=== PATIENT | male | born 1960 | race Caucasian/White ===

== ENCOUNTER 2016-11-10 03:21 | Inpatient (IN) | payer OTHER ==
[~2016-11-10] VITALS: Ht 170.2 cm; Wt 57.1 kg
[~2016-11-10 03:21] MED LIST: ADVAIR HFA120 INHAL1 IH; AGGRENOX1 CAPSULE PO; AMLODIPINE BESY10 MG PO; AMLODIPINE BESYL5 MG PO; ASPIR-LOW81 MG PO; ATORVASTATIN CA40 MG PO; CEFDINIR300 MG PO; DIOVAN HCT 31 TABLE1 PO; DOXYCYCLINE HY100 MG PO; DULERA 200 MCG/13 GM IH; DUONEB 2.5-0.5 M3 ML AEROSOL; FOLIC ACID1 MG PO; LIPITOR40 MG PO; LISINOPRIL20 MG PO; LOPRESSOR100 M1 PO; NICOTINE PATCH1 EAC2 TD; NICOTINE PATCH1 EACH TD; NORVASC10 MG PO; OMNICEF300 MG PO; OXYCODONE HCL30 MG PO; OXYMORPHONE HCL20 MG PO; PLAVIX75 MG PO; PREDNISONE10 MG PO; ST. JOSEPH ASPI81 MG PO; THERAGRAN1 TABLET PO; VALSARTAN-HCTZ1 EAC3 PO; VENTOLIN HFA18 GM IH; VITAMIN B-1100 MG PO
[2016-11-10 03:46] LABS: HEMATOCRIT 37.7 % (38.0-50.0); MCH 29.7 PG (29.0-34.0); MCHC 32.6 G/DL (30.0-36.0); MCV 91.1 FL (86-99); MEAN PLAT.VOLUME 8.6 uM^3 (9.0-12.4); PLATELET COUNT 447 K/uL (156-360); RBC DIS.WIDTH-CV 18.7 % (11.8-14.6); RBC DIS.WIDTH-SD 60.8 % (39-53); RED BLOOD COUNT 4.14 M/uL (4.00-5.50); WHITE BLOOD COUNT 20.7 K/uL (4.1-10.2)
[2016-11-10 03:47] LABS: EOSINOPHIL (%) 0.1 % (0-5); IMMATURE GRANULOCYTE (%) 0.6 % (0.0-0.7); IMMATURE GRANULOCYTE COUNT 1.3 K/uL; MONOCYTE (%) 6.6 % (3-12); MONOCYTE COUNT 1.4 K/uL (0-0.8); NEUTROPHIL (%) 83.1 % (45-76); NEUTROPHIL COUNT 17.2 K/uL (1.8-6.4)
[2016-11-10 03:55] LABS: CHLORIDE 96 mEq/L (99-109); POTASSIUM 2.8 mEq/L (3.7-5.4); SODIUM 144 mEq/L (136-147)
[2016-11-10 03:57] LABS: GLUCOSE 136 mg/dL (70-99)
[2016-11-10 03:58] LABS: ANION GAP 14 MEQ/L (2-14); PTT 45.2 (25-32)
[2016-11-10 03:59] LABS: INTER. NORMALIZED RATIO 2.3; PROTHROMBIN TIME 23.9 (9.2-11.2); TOTAL BILIRUBIN 0.2 mg/dL (0.0-1.0)
[2016-11-10 04:00] LABS: ALKALINE PHOSPHATASE 90 IU/L (3-129); SERUM ETHYL ALCOHOL 289 mg/dL
[2016-11-10 04:01] LABS: GFR ESTIMATE (CALCULATED) > 59 mL/min/
[2016-11-10 04:02] LABS: UREA NITROGEN (BUN) 19 mg/dL (9-23)
[2016-11-10 04:04] LABS: CREATINE KINASE 32 IU/L (1-294); LIPASE 151 U/L (1.0-51.0)
[2016-11-10 04:29] LABS: CARBON DIOXIDE (BICARBONATE) 37.2 MEQ/L (20-31)
[2016-11-10 09:04] LABS: ADD MIUA? NO; BILIRUBIN NEGATIVE; BLOOD NEGATIVE; COLOR YELLOW ((YELLOW)); GLUCOSE (STRIP) NEGATIVE; KETONES NEGATIVE; LEUKOCYTES NEGATIVE; NITRITE NEGATIVE; PROTEIN (STRIP) TRACE; SPECIFIC GRAVITY 1.017 (1.000-1.030); UCUL ADDED? NO; UROBILINOGEN 0.2 MG/DL (0.2-1.0)
[2016-11-10 09:48] LABS: HEMATOCRIT 31.7 % (38.0-50.0); MCH 30.4 PG (29.0-34.0); MCHC 34.1 G/DL (30.0-36.0); MCV 89.3 FL (86-99); MEAN PLAT.VOLUME 8.6 uM^3 (9.0-12.4); PLATELET COUNT 332 K/uL (156-360); RBC DIS.WIDTH-CV 18.4 % (11.8-14.6); RBC DIS.WIDTH-SD 58.2 % (39-53); RED BLOOD COUNT 3.55 M/uL (4.00-5.50); WHITE BLOOD COUNT 24.1 K/uL (4.1-10.2)
[2016-11-10 10:04] LABS: CHLORIDE 103 mEq/L (99-109); POTASSIUM 3.3 mEq/L (3.7-5.4); SODIUM 143 mEq/L (136-147)
[2016-11-10 10:06] LABS: GLUCOSE 133 mg/dL (70-99)
[2016-11-10 10:07] LABS: ANION GAP 19 MEQ/L (2-14)
[2016-11-10 10:09] LABS: ALKALINE PHOSPHATASE 75 IU/L (3-129); TOTAL BILIRUBIN 0.4 mg/dL (0.0-1.0)
[2016-11-10 10:10] LABS: GFR ESTIMATE (CALCULATED) > 59 mL/min/
[2016-11-10 10:11] LABS: UREA NITROGEN (BUN) 16 mg/dL (9-23)
[2016-11-10 11:11] LABS: EOSINOPHIL (%) 0.3 % (0-5); EOSINOPHIL COUNT 0.1 K/uL (0-0.3); HEMATOLOGY COMMENT 1 SMEAR COMPATIBLE; IMMATURE GRANULOCYTE (%) 0.5 % (0.0-0.7); IMMATURE GRANULOCYTE COUNT 1.1 K/uL; LYMPHOCYTE COUNT 0.4 K/uL (1.0-2.8); MONOCYTE (%) 1.4 % (3-12); MONOCYTE COUNT 0.3 K/uL (0-0.8); NEUTROPHIL (%) 96.2 % (45-76); NEUTROPHIL COUNT 23.1 K/uL (1.8-6.4); USER ID STC
[2016-11-10 12:08] LABS: CHLORIDE 103 mEq/L (99-109); POTASSIUM 3.4 mEq/L (3.7-5.4); SODIUM 143 mEq/L (136-147)
[2016-11-10 12:09] LABS: GLUCOSE 133 mg/dL (70-99)
[2016-11-10 12:11] LABS: ANION GAP 17 MEQ/L (2-14)
[2016-11-10 12:13] LABS: GFR ESTIMATE (CALCULATED) > 59 mL/min/
[2016-11-10 12:14] LABS: UREA NITROGEN (BUN) 16 mg/dL (9-23)
[2016-11-10 15:03] VITALS: BP 132/82
[2016-11-10 16:00] VITALS: BP 164/89
[2016-11-10 23:12] VITALS: BP 124/77
[2016-11-11 06:01] LABS: ALKALINE PHOSPHATASE 62 IU/L (3-129); ANION GAP 10 MEQ/L (2-14); CHLORIDE 99 MEQ/L (99-109); GFR ESTIMATE (CALCULATED) > 59 mL/min/; GLUCOSE 136 mg/dL (70-99); LIPASE 66 U/L (1.0-51.0); SAMPLE HEMOLYSIS CHECK 0; SAMPLE ICTERIC CHECK 0; SAMPLE LIPEMIA CHECK 0; SODIUM 138 MEQ/L (136-147); TOTAL BILIRUBIN 0.4 MG/DL (0.0-1.0); UREA NITROGEN (BUN) 18 mg/dL (9-23)
[2016-11-11 06:22] LABS: HEMATOCRIT 28.8 % (38.0-50.0); MCHC 32.6 G/DL (30.0-36.0); MCV 88.9 FL (86-99); MEAN PLAT.VOLUME 8.8 uM^3 (9.0-12.4); PLATELET COUNT 334 K/uL (156-360); RBC DIS.WIDTH-CV 18.5 % (11.8-14.6); RBC DIS.WIDTH-SD 60.9 % (39-53); RED BLOOD COUNT 3.24 M/uL (4.00-5.50)
[2016-11-11 06:23] LABS: WHITE BLOOD COUNT 13.3 K/uL (4.1-10.2)
[2016-11-11 06:25] LABS: INTER. NORMALIZED RATIO 1.9; PROTHROMBIN TIME 20.1 (9.2-11.2)
[2016-11-11 07:24] LABS: MAGNESIUM 1.8 mg/dl (1.3-2.7)
[2016-11-11 08:02] VITALS: BP 147/102
[2016-11-11] MEDS ORDERED: AMLODIPINE BESY10 MG PO (15:34)
[2016-11-11] MEDS ORDERED: ASPIRIN81 M2 PO (15:35)
[2016-11-11] MEDS ORDERED: CARVEDILOL6.25 MG PO (15:36)
[2016-11-11] MEDS ORDERED: ATORVASTATIN CA40 MG PO (15:36)
[2016-11-11] MEDS ORDERED: PLAVIX75 MG PO (15:37)
[2016-11-11] MEDS ORDERED: FOLIC ACID1 MG PO (15:38)
[2016-11-11] MEDS ORDERED: DIOVAN HCT 11 TABLE1 PO (15:41)
[2016-11-11] MEDS ORDERED: VIAGRA100 MG PO (15:42)
[2016-11-11 16:14] VITALS: BP 143/91
[2016-11-11 23:08] VITALS: BP 127/96
[2016-11-12 04:55] LABS: BASE EXCESS -3.8 mEq/L (-3 to +3); CARBOXY HGB 1.7 % (0-5); METHEMOGLOBIN 1.5 % (0-1.5); pH 7.35 (7.35-7.45)
[2016-11-12 04:56] LABS: BICARBONATE 21.5 mEq/L (22-26); COMMENTS - BLOOD GASES C+; DEVICE NRB MASK; FI02 100 %; O2 FLOW 15 L/MIN; PCO2 39 mm Hg (35-45); PO2 122 mm Hg (80-100); SITE RR; TOTAL RESP RATE 28 resp/min
[2016-11-12 06:49] LABS: INTER. NORMALIZED RATIO 1.3; PROTHROMBIN TIME 13.4 (9.2-11.2)
[2016-11-12 06:50] LABS: HEMATOCRIT 31.4 % (38.0-50.0); MCH 30.2 PG (29.0-34.0); MCHC 33.4 G/DL (30.0-36.0); MCV 90.2 FL (86-99); PLATELET COUNT 361 K/uL (156-360); RBC DIS.WIDTH-CV 18.3 % (11.8-14.6); RBC DIS.WIDTH-SD 60.4 % (39-53); RED BLOOD COUNT 3.48 M/uL (4.00-5.50)
[2016-11-12 06:56] LABS: WHITE BLOOD COUNT 21.7 K/uL (4.1-10.2)
[2016-11-12 07:39] LABS: TROP-I INTERPRETATION INDETERMINATE; TROPONIN-I 0.47 ng/mL (0.0-0.30)
[2016-11-12 08:59] LABS: ALKALINE PHOSPHATASE 60 IU/L (3-129); ANION GAP 11 MEQ/L (2-14); CHLORIDE 98 MEQ/L (99-109); GFR ESTIMATE (CALCULATED) > 59 mL/min/; GLUCOSE 127 mg/dL (70-99); POTASSIUM 3.6 MEQ/L (3.7-5.4); SAMPLE HEMOLYSIS CHECK 0; SAMPLE ICTERIC CHECK 0; SAMPLE LIPEMIA CHECK 0; SODIUM 135 MEQ/L (136-147); UREA NITROGEN (BUN) 12 mg/dL (9-23)
[2016-11-12 09:01] LABS: TOTAL BILIRUBIN 0.5 MG/DL (0.0-1.0)
[2016-11-12 09:15] VITALS: BP 118/84
[2016-11-12 11:30] VITALS: BP 119/93
[2016-11-12 16:12] LABS: TROP-I INTERPRETATION INDETERMINATE; TROPONIN-I 0.45 ng/mL (0.0-0.30)
[2016-11-12 20:06] VITALS: BP 123/92
[2016-11-12 22:52] VITALS: BP 142/70
[2016-11-12 23:05] LABS: EOSINOPHIL (%) 0 % (0-5); HEMATOCRIT 30.7 % (38.0-50.0); IMMATURE GRANULOCYTE (%) 0.3 % (0.0-0.7); LYMPHOCYTE COUNT 0.4 K/uL (1.0-2.8); MCH 28.5 PG (29.0-34.0); MCHC 31.6 G/DL (30.0-36.0); MCV 90.3 FL (86-99); MONOCYTE (%) 4.5 % (3-12); MONOCYTE COUNT 0.5 K/uL (0-0.8); NEUTROPHIL (%) 91.5 % (45-76); NEUTROPHIL COUNT 9.2 K/uL (1.8-6.4); PLATELET COUNT 357 K/uL (156-360); RBC DIS.WIDTH-CV 18.4 % (11.8-14.6); RBC DIS.WIDTH-SD 61.2 % (39-53)
[2016-11-12 23:06] LABS: WHITE BLOOD COUNT 10.1 K/uL (4.1-10.2)
[2016-11-12 23:10] LABS: CHLORIDE 102 mEq/L (99-109); POTASSIUM 3.9 mEq/L (3.7-5.4); SODIUM 136 mEq/L (136-147)
[2016-11-12 23:12] LABS: GLUCOSE 128 mg/dL (70-99)
[2016-11-12 23:13] LABS: ANION GAP 11 MEQ/L (2-14)
[2016-11-12 23:16] LABS: GFR ESTIMATE (CALCULATED) > 59 mL/min/; UREA NITROGEN (BUN) 17 mg/dL (9-23)
[2016-11-13 01:19] LABS: TROP-I INTERPRETATION NEGATIVE; TROPONIN-I 0.26 ng/mL (0.0-0.30)
[2016-11-13 04:23] VITALS: BP 125/85
[2016-11-13 08:22] LABS: MCH 29.8 PG (29.0-34.0); MCHC 32.7 G/DL (30.0-36.0); MCV 91.2 FL (86-99); MEAN PLAT.VOLUME 9.2 uM^3 (9.0-12.4); PLATELET COUNT 322 K/uL (156-360); RBC DIS.WIDTH-CV 18.4 % (11.8-14.6); RBC DIS.WIDTH-SD 61.2 % (39-53); RED BLOOD COUNT 3.29 M/uL (4.00-5.50); WHITE BLOOD COUNT 8.8 K/uL (4.1-10.2)
[2016-11-13 08:26] LABS: INTER. NORMALIZED RATIO 1.5; PROTHROMBIN TIME 15.3 (9.2-11.2)
[2016-11-13 08:49] LABS: CHLORIDE 105 mEq/L (99-109); POTASSIUM 4.3 mEq/L (3.7-5.4); SODIUM 140 mEq/L (136-147)
[2016-11-13 08:51] LABS: GLUCOSE 120 mg/dL (70-99)
[2016-11-13 08:52] LABS: ANION GAP 10 MEQ/L (2-14)
[2016-11-13 08:53] LABS: TOTAL BILIRUBIN 0.3 mg/dL (0.0-1.0)
[2016-11-13 08:54] LABS: ALKALINE PHOSPHATASE 55 IU/L (3-129)
[2016-11-13 08:55] LABS: GFR ESTIMATE (CALCULATED) > 59 mL/min/
[2016-11-13 08:56] LABS: UREA NITROGEN (BUN) 15 mg/dL (9-23)
[2016-11-13 08:59] LABS: TROP-I INTERPRETATION NEGATIVE; TROPONIN-I 0.14 ng/mL (0.0-0.30)
[2016-11-13 17:19] VITALS: BP 136/90
[2016-11-13 18:52] VITALS: BP 159/106
[2016-11-13 23:43] VITALS: BP 138/68
[2016-11-14 04:09] VITALS: BP 138/58
[2016-11-14 05:27] LABS: HEMATOCRIT 30.7 % (38.0-50.0); MCH 29.9 PG (29.0-34.0); MCHC 31.9 G/DL (30.0-36.0); MCV 93.6 FL (86-99); MEAN PLAT.VOLUME 9.2 uM^3 (9.0-12.4); PLATELET COUNT 315 K/uL (156-360); RBC DIS.WIDTH-CV 18.1 % (11.8-14.6); RED BLOOD COUNT 3.28 M/uL (4.00-5.50); WHITE BLOOD COUNT 9.5 K/uL (4.1-10.2)
[2016-11-14 05:59] LABS: PROTHROMBIN TIME 21.3 (9.2-11.2)
[2016-11-14 06:26] LABS: ALKALINE PHOSPHATASE 43 IU/L (3-129); ANION GAP 7 MEQ/L (2-14); CHLORIDE 104 MEQ/L (99-109); GFR ESTIMATE (CALCULATED) > 59 mL/min/; GLUCOSE 110 mg/dL (70-99); POTASSIUM 3.6 MEQ/L (3.7-5.4); SAMPLE HEMOLYSIS CHECK 0; SAMPLE ICTERIC CHECK 0; SAMPLE LIPEMIA CHECK 0; SODIUM 142 MEQ/L (136-147); TOTAL BILIRUBIN 0.4 MG/DL (0.0-1.0); UREA NITROGEN (BUN) 17 mg/dL (9-23)
[2016-11-14 06:30] LABS: VANCOMYCIN, TROUGH 27.6 MCG/ML (10-20)
[2016-11-14 07:00] VITALS: BP 148/82
[2016-11-14 11:40] VITALS: BP 142/88
[2016-11-14 16:45] VITALS: BP 138/82
[2016-11-14 20:00] VITALS: BP 138/70
[2016-11-14 22:44] VITALS: BP 140/70
[2016-11-15 03:01] VITALS: BP 128/68
[2016-11-15 06:54] LABS: HEMATOCRIT 28.8 % (38.0-50.0); MCH 29.7 PG (29.0-34.0); MCHC 31.6 G/DL (30.0-36.0); MCV 94.1 FL (86-99); MEAN PLAT.VOLUME 9.1 uM^3 (9.0-12.4); PLATELET COUNT 312 K/uL (156-360); RBC DIS.WIDTH-CV 18.4 % (11.8-14.6); RED BLOOD COUNT 3.06 M/uL (4.00-5.50); WHITE BLOOD COUNT 9.9 K/uL (4.1-10.2)
[2016-11-15 07:10] LABS: INTER. NORMALIZED RATIO 2.3; PROTHROMBIN TIME 24.4 (9.2-11.2)
[2016-11-15 07:24] LABS: ALKALINE PHOSPHATASE 45 IU/L (3-129); ANION GAP 10 MEQ/L (2-14); CHLORIDE 112 MEQ/L (99-109); GFR ESTIMATE (CALCULATED) > 59 mL/min/; GLUCOSE 93 mg/dL (70-99); POTASSIUM 3.2 MEQ/L (3.7-5.4); SAMPLE HEMOLYSIS CHECK 0; SAMPLE ICTERIC CHECK 0; SAMPLE LIPEMIA CHECK 0; UREA NITROGEN (BUN) 17 mg/dL (9-23)
[2016-11-15 07:25] LABS: SODIUM 150 MEQ/L (136-147); TOTAL BILIRUBIN 0.5 MG/DL (0.0-1.0)
[2016-11-15 07:40] VITALS: BP 148/68
[2016-11-15 12:15] VITALS: BP 132/72
[2016-11-15 17:50] VITALS: BP 148/78
[2016-11-15 19:50] VITALS: BP 158/82
[2016-11-15 23:00] VITALS: BP 162/91
[2016-11-16 04:16] VITALS: BP 159/97
[2016-11-16 06:47] LABS: HEMATOCRIT 29.1 % (38.0-50.0); MCHC 31.3 G/DL (30.0-36.0); MCV 92.7 FL (86-99); MEAN PLAT.VOLUME 8.8 uM^3 (9.0-12.4); PLATELET COUNT 308 K/uL (156-360); RBC DIS.WIDTH-CV 18.6 % (11.8-14.6); RBC DIS.WIDTH-SD 63.1 % (39-53); RED BLOOD COUNT 3.14 M/uL (4.00-5.50)
[2016-11-16 07:18] LABS: ALKALINE PHOSPHATASE 55 IU/L (3-129); ANION GAP 11 MEQ/L (2-14); CHLORIDE 112 MEQ/L (99-109); GFR ESTIMATE (CALCULATED) > 59 mL/min/; GLUCOSE 113 mg/dL (70-99); SAMPLE HEMOLYSIS CHECK 0; SAMPLE ICTERIC CHECK 0; SAMPLE LIPEMIA CHECK 0; SODIUM 152 MEQ/L (136-147); TOTAL BILIRUBIN 0.5 MG/DL (0.0-1.0); UREA NITROGEN (BUN) 12 mg/dL (9-23)
[2016-11-16 07:52] VITALS: BP 170/93
[2016-11-16 11:11] VITALS: BP 147/98
[2016-11-16 16:40] VITALS: BP 140/86
[2016-11-16 20:15] VITALS: BP 139/98
[2016-11-16 22:04] VITALS: BP 145/99
[2016-11-17 03:40] VITALS: BP 139/98
[2016-11-17 06:42] LABS: HEMATOCRIT 28.2 % (38.0-50.0); MCH 28.6 PG (29.0-34.0); MCHC 30.9 G/DL (30.0-36.0); MCV 92.8 FL (86-99); MEAN PLAT.VOLUME 9.5 uM^3 (9.0-12.4); PLATELET COUNT 319 K/uL (156-360); RBC DIS.WIDTH-SD 64.4 % (39-53); RED BLOOD COUNT 3.04 M/uL (4.00-5.50); WHITE BLOOD COUNT 8.8 K/uL (4.1-10.2)
[2016-11-17 06:53] LABS: INTER. NORMALIZED RATIO 2.9; PROTHROMBIN TIME 30.3 (9.2-11.2)
[2016-11-17 07:10] LABS: ALKALINE PHOSPHATASE 80 IU/L (3-129); ANION GAP 9 MEQ/L (2-14); CHLORIDE 113 MEQ/L (99-109); GFR ESTIMATE (CALCULATED) > 59 mL/min/; GLUCOSE 112 mg/dL (70-99); SAMPLE HEMOLYSIS CHECK 0; SAMPLE ICTERIC CHECK 0; SAMPLE LIPEMIA CHECK 0; SODIUM 151 MEQ/L (136-147); TOTAL BILIRUBIN 0.5 MG/DL (0.0-1.0); UREA NITROGEN (BUN) 9 mg/dL (9-23)
[2016-11-17 07:19] LABS: POTASSIUM 3.8 MEQ/L (3.7-5.4)
[2016-11-17 08:51] VITALS: BP 179/85
[2016-11-17 09:39] VITALS: BP 179/85
[2016-11-17 12:13] VITALS: BP 142/98
[2016-11-17 16:48] VITALS: BP 138/110
[2016-11-17 22:55] VITALS: BP 156/86
[2016-11-18] VITALS (7 sets, daily range): BP systolic 129–175; BP diastolic 89–109
[2016-11-18 06:55] LABS: HEMATOCRIT 26.5 % (38.0-50.0); MCHC 31.3 G/DL (30.0-36.0); MCV 92.7 FL (86-99); MEAN PLAT.VOLUME 9.1 uM^3 (9.0-12.4); PLATELET COUNT 309 K/uL (156-360); RBC DIS.WIDTH-CV 19.3 % (11.8-14.6); RBC DIS.WIDTH-SD 65.1 % (39-53); RED BLOOD COUNT 2.86 M/uL (4.00-5.50)
[2016-11-18 07:05] LABS: INTER. NORMALIZED RATIO 3.4; PROTHROMBIN TIME 35.7 (9.2-11.2)
[2016-11-18 07:35] LABS: ALKALINE PHOSPHATASE 75 IU/L (3-129); ANION GAP 7 MEQ/L (2-14); CHLORIDE 113 MEQ/L (99-109); GFR ESTIMATE (CALCULATED) > 59 mL/min/; GLUCOSE 112 mg/dL (70-99); POTASSIUM 4.1 MEQ/L (3.7-5.4); SAMPLE HEMOLYSIS CHECK 0; SAMPLE ICTERIC CHECK 0; SAMPLE LIPEMIA CHECK 0; SODIUM 149 MEQ/L (136-147); TOTAL BILIRUBIN 0.4 MG/DL (0.0-1.0); UREA NITROGEN (BUN) 8 mg/dL (9-23)
[2016-11-18 12:12] LABS: METHEMOGLOBIN 1.3 % (0-1.5)
[2016-11-18 12:13] LABS: BICARBONATE 26.2 mEq/L (22-26); COMMENTS - BLOOD GASES A+C+; DEVICE NC; O2 FLOW 1 L/MIN; PCO2 30 mm Hg (35-45); PO2 66 mm Hg (80-100); SITE RR; TOTAL RESP RATE 32 resp/min; pH 7.55 (7.35-7.45)
[2016-11-18 12:40] LABS: TROP-I INTERPRETATION NEGATIVE; TROPONIN-I 0.08 ng/mL (0.0-0.30)
[2016-11-19 06:50] LABS: MCH 28.8 PG (29.0-34.0); MCV 92.9 FL (86-99); MEAN PLAT.VOLUME 8.9 uM^3 (9.0-12.4); PLATELET COUNT 366 K/uL (156-360); RBC DIS.WIDTH-CV 19.6 % (11.8-14.6); RED BLOOD COUNT 3.23 M/uL (4.00-5.50); WHITE BLOOD COUNT 6.8 K/uL (4.1-10.2)
[2016-11-19 07:02] LABS: INTER. NORMALIZED RATIO 2.4; PROTHROMBIN TIME 25.2 (9.2-11.2)
[2016-11-19 08:00] VITALS: BP 144/95
[2016-11-19 08:16] LABS: ALKALINE PHOSPHATASE 72 IU/L (3-129); ANION GAP 9 MEQ/L (2-14); CHLORIDE 111 MEQ/L (99-109); GFR ESTIMATE (CALCULATED) > 59 mL/min/; GLUCOSE 91 mg/dL (70-99); POTASSIUM 3.7 MEQ/L (3.7-5.4); SAMPLE HEMOLYSIS CHECK 0; SAMPLE ICTERIC CHECK 0; SAMPLE LIPEMIA CHECK 0; SODIUM 149 MEQ/L (136-147); UREA NITROGEN (BUN) 10 mg/dL (9-23)
[2016-11-19 08:19] LABS: TOTAL BILIRUBIN 0.5 MG/DL (0.0-1.0)
[2016-11-19 15:48] VITALS: BP 163/97
[2016-11-20 01:14] VITALS: BP 161/109
[2016-11-20 07:11] LABS: HEMATOCRIT 27.6 % (38.0-50.0); MCH 29.7 PG (29.0-34.0); MCHC 32.2 G/DL (30.0-36.0); MEAN PLAT.VOLUME 9.5 uM^3 (9.0-12.4); PLATELET COUNT 341 K/uL (156-360); RBC DIS.WIDTH-CV 19.6 % (11.8-14.6); RBC DIS.WIDTH-SD 65.3 % (39-53); WHITE BLOOD COUNT 9.9 K/uL (4.1-10.2)
[2016-11-20 07:29] LABS: ALKALINE PHOSPHATASE 54 IU/L (3-129); ANION GAP 10 MEQ/L (2-14); CHLORIDE 111 MEQ/L (99-109); GFR ESTIMATE (CALCULATED) > 59 mL/min/; GLUCOSE 98 mg/dL (70-99); POTASSIUM 3.9 MEQ/L (3.7-5.4); SAMPLE HEMOLYSIS CHECK 0; SAMPLE ICTERIC CHECK 0; SAMPLE LIPEMIA CHECK 0; SODIUM 147 MEQ/L (136-147); TOTAL BILIRUBIN 0.5 MG/DL (0.0-1.0); UREA NITROGEN (BUN) 8 mg/dL (9-23)
[2016-11-20 07:48] VITALS: BP 152/100
[2016-11-20 08:43] LABS: INTER. NORMALIZED RATIO 1.7; PROTHROMBIN TIME 17.7 (9.2-11.2)
[2016-11-20 11:58] VITALS: BP 134/91
[2016-11-20 15:45] VITALS: BP 141/85
[2016-11-20 19:50] VITALS: BP 159/97
[2016-11-20 22:50] VITALS: BP 146/93
[2016-11-21 04:05] VITALS: BP 138/102
[2016-11-21 06:52] LABS: HEMATOCRIT 27.1 % (38.0-50.0); MCH 29.7 PG (29.0-34.0); MCHC 31.7 G/DL (30.0-36.0); MCV 93.4 FL (86-99); MEAN PLAT.VOLUME 9.3 uM^3 (9.0-12.4); PLATELET COUNT 393 K/uL (156-360); RBC DIS.WIDTH-CV 19.8 % (11.8-14.6); RBC DIS.WIDTH-SD 67.7 % (39-53); WHITE BLOOD COUNT 10.9 K/uL (4.1-10.2)
[2016-11-21 07:04] LABS: INTER. NORMALIZED RATIO 1.5; PROTHROMBIN TIME 15.8 (9.2-11.2)
[2016-11-21 07:20] LABS: ALKALINE PHOSPHATASE 50 IU/L (3-129); ANION GAP 8 MEQ/L (2-14); CHLORIDE 108 MEQ/L (99-109); GFR ESTIMATE (CALCULATED) > 59 mL/min/; GLUCOSE 100 mg/dL (70-99); POTASSIUM 4.2 MEQ/L (3.7-5.4); SAMPLE HEMOLYSIS CHECK 0; SAMPLE ICTERIC CHECK 0; SAMPLE LIPEMIA CHECK 0; SODIUM 146 MEQ/L (136-147); TOTAL BILIRUBIN 0.5 MG/DL (0.0-1.0); UREA NITROGEN (BUN) 7 mg/dL (9-23)
[2016-11-21 15:27] VITALS: BP 137/98
[2016-11-22 00:13] VITALS: BP 133/90
[2016-11-22 07:17] LABS: HEMATOCRIT 31.4 % (38.0-50.0); MCH 29.2 PG (29.0-34.0); MCHC 30.9 G/DL (30.0-36.0); MCV 94.6 FL (86-99); PLATELET COUNT 379 K/uL (156-360); RBC DIS.WIDTH-CV 19.9 % (11.8-14.6); RBC DIS.WIDTH-SD 68.9 % (39-53); RED BLOOD COUNT 3.32 M/uL (4.00-5.50); WHITE BLOOD COUNT 12.9 K/uL (4.1-10.2)
[2016-11-22 07:33] LABS: INTER. NORMALIZED RATIO 1.6; PROTHROMBIN TIME 16.4 (9.2-11.2)
[2016-11-22 07:34] VITALS: BP 125/91
[2016-11-22 07:40] LABS: ALKALINE PHOSPHATASE 50 IU/L (3-129); ANION GAP 8 MEQ/L (2-14); CHLORIDE 107 MEQ/L (99-109); GFR ESTIMATE (CALCULATED) > 59 mL/min/; GLUCOSE 72 mg/dL (70-99); POTASSIUM 3.9 MEQ/L (3.7-5.4); SAMPLE HEMOLYSIS CHECK 0; SAMPLE ICTERIC CHECK 0; SAMPLE LIPEMIA CHECK 0; SODIUM 146 MEQ/L (136-147); TOTAL BILIRUBIN 0.4 MG/DL (0.0-1.0); UREA NITROGEN (BUN) 6 mg/dL (9-23)
[2016-11-22 16:35] VITALS: BP 124/88
[2016-11-22 22:50] VITALS: BP 135/84
[2016-11-23 05:36] VITALS: BP 171/109
[2016-11-23 08:15] VITALS: BP 150/98
[2016-11-23 10:19] LABS: HEMATOCRIT 31.9 % (38.0-50.0); MCH 28.7 PG (29.0-34.0); MCHC 30.1 G/DL (30.0-36.0); MCV 95.2 FL (86-99); RBC DIS.WIDTH-CV 19.6 % (11.8-14.6); RBC DIS.WIDTH-SD 68.3 % (39-53); RED BLOOD COUNT 3.35 M/uL (4.00-5.50); WHITE BLOOD COUNT 13.4 K/uL (4.1-10.2)
[2016-11-23 10:49] LABS: ALKALINE PHOSPHATASE 53 IU/L (3-129); ANION GAP 8 MEQ/L (2-14); CHLORIDE 100 MEQ/L (99-109); GFR ESTIMATE (CALCULATED) > 59 mL/min/; POTASSIUM 4.1 MEQ/L (3.7-5.4); SAMPLE HEMOLYSIS CHECK 0; SAMPLE ICTERIC CHECK 0; SAMPLE LIPEMIA CHECK 0; SODIUM 145 MEQ/L (136-147); UREA NITROGEN (BUN) 6 mg/dL (9-23)
[2016-11-23 10:53] LABS: GLUCOSE 97 mg/dL (70-99); TOTAL BILIRUBIN 0.3 MG/DL (0.0-1.0)
[2016-11-23 11:37] VITALS: BP 147/92
[2016-11-23 14:03] LABS: INTER. NORMALIZED RATIO 1.8; PROTHROMBIN TIME 18.2 (9.2-11.2)
[2016-11-23 16:14] VITALS: BP 150/82
[2016-11-23 23:06] VITALS: BP 148/82
[2016-11-24 07:59] VITALS: BP 163/90
[2016-11-24] MEDS ORDERED: DUONEB 2.5-0.5 M3 ML AEROSOL (09:17)
[2016-11-24] MEDS ORDERED: WARFARIN SODIUM1 MG PO (09:17)
[2016-11-24] MEDS ORDERED: NICOTINE PATCH1 EAC2 TD (09:17)
[2016-11-24] MEDS ORDERED: AMLODIPINE BESYL5 MG PO (09:18)
[2016-11-24] MEDS ORDERED: VALSARTAN160 MG PO (09:18)
[2016-11-24] MEDS ORDERED: OXYCODONE HCL5 MG PO (09:19)
[2016-11-24] MEDS ORDERED: ADVAIR HFA120 INHAL1 IH (09:19)
[2016-11-24] MEDS ORDERED: PREDNISONE10 MG PO (09:19)
[2016-11-24] MEDS ORDERED: COUMADIN3 MG PO (11:01)
[2016-11-24 12:50] VITALS: BP 137/86
== END 2016-11-24 12:56 | DRG 871 ==
LOC: EME 03:21 → 4EAST 04:56 → EDOF 04:56 → 5EAST 04:56 → EDOF 06:56 → 5EAST 13:51 → 4EAST 11-12 09:05 → 5EAST 11-16 21:00
PROVIDERS: Emergency Medicine; Internal Medicine
DX: A41.9 Sepsis, unspecified organism (principal); J18.9 Pneumonia, unspecified organism; F10.231 Alcohol dependence with withdrawal delirium; J44.1 Chronic obstructive pulmonary disease with (acute) exacerbation; R64 Cachexia; E87.2 Acidosis; I82.812 Embolism and thrombosis of superficial veins of left lower extremity; E87.6 Hypokalemia; E83.51 Hypocalcemia; I10 Essential (primary) hypertension; K21.9 Gastro-esophageal reflux disease without esophagitis; F17.210 Nicotine dependence, cigarettes, uncomplicated; D64.9 Anemia, unspecified; Z79.01 Long term (current) use of anticoagulants; R06.00 Dyspnea, unspecified; Z86.73 Personal history of transient ischemic attack (TIA), and cerebral infarction without residual deficits; Z86.718 Personal history of other venous thrombosis and embolism
CPT/HCPCS: 36600; 70450; 71010; 71020; 74230; 80048 91; 80053; 80202; 81003; 82140; 82550; 82803; 83605; 83690; 83735; 84443; 84484; 85025; 85025 91; 85027; 85610; 85730; 87040; 87070; 87205; 92526 GN; 92610 GN; 92611 GN; 93005; 93306; 93970; 94640; 94640 76; 94760; 94799; 97530 GO; 97530 GP; 99202; 99281; 99285; G0480; J0360; J1630; J1650; J1940; J2060; J2543; J2920; J2930; J3370; J3411; J3475; J3480; J7030; J7050; J7512; S0028

== ENCOUNTER 2017-03-09 15:34 | Emergency (ER) | payer OTHER ==
[~2017-03-09] VITALS: Ht 170.2 cm; Wt 65.9 kg
[~2017-03-09 15:34] MED LIST changes: +ASPIRIN81 M2 PO; +CARVEDILOL6.25 MG PO; +COUMADIN3 MG PO; +DIOVAN HCT 11 TABLE1 PO; +OXYCODONE HCL5 MG PO; +VALSARTAN160 MG PO; +VIAGRA100 MG PO; +WARFARIN SODIUM1 MG PO
[2017-03-09 17:03] LABS: HEMATOCRIT 51.1 % (38.0-50.0); MCH 27.2 PG (29.0-34.0); MCHC 32.3 G/DL (30.0-36.0); MCV 84.3 FL (86-99); MEAN PLAT.VOLUME 9.1 uM^3 (9.0-12.4); PLATELET COUNT 337 K/uL (156-360); RBC DIS.WIDTH-CV 14.7 % (11.8-14.6); RBC DIS.WIDTH-SD 45.2 % (39-53); RED BLOOD COUNT 6.06 M/uL (4.00-5.50); WHITE BLOOD COUNT 5.1 K/uL (4.1-10.2)
[2017-03-09 17:42] LABS: CHLORIDE 106 mEq/L (99-109); POTASSIUM 4.1 mEq/L (3.7-5.4); SODIUM 146 mEq/L (136-147)
[2017-03-09 17:44] LABS: GLUCOSE 81 mg/dL (70-99)
[2017-03-09 17:45] LABS: ANION GAP 18 MEQ/L (2-14)
[2017-03-09 17:48] LABS: GFR ESTIMATE (CALCULATED) > 59 mL/min/; UREA NITROGEN (BUN) 6 mg/dL (9-23)
[2017-03-09 17:51] LABS: TROP-I INTERPRETATION NEGATIVE; TROPONIN-I < 0.01 ng/mL (0.0-0.30)
[2017-03-09 22:26] LABS: TROP-I INTERPRETATION NEGATIVE; TROPONIN-I < 0.01 ng/mL (0.0-0.30)
[2017-03-09 23:13] VITALS: BP 152/97
== END 2017-03-09 23:21 | disposition home or self-care (01) ==
LOC: EME 15:34
PROVIDERS: Emergency Medicine
DX: R07.89 Other chest pain (principal); R79.1 Abnormal coagulation profile; Z86.718 Personal history of other venous thrombosis and embolism; Z79.82 Long term (current) use of aspirin; F17.200 Nicotine dependence, unspecified, uncomplicated
CPT/HCPCS: 71010; 71275; 80048; 84484; 85027; 85379; 93005; 99281; 99284

== ENCOUNTER 2017-03-16 17:48 | Observation (INO) | payer OTHER ==
[~2017-03-16] VITALS: Ht 170.2 cm; Wt 62.8 kg
[2017-03-16 19:46] LABS: EOSINOPHIL (%) 2.1 % (0-5); EOSINOPHIL COUNT 0.1 K/uL (0-0.3); HEMATOCRIT 44.4 % (38.0-50.0); IMMATURE GRANULOCYTE (%) 0.2 % (0.0-0.7); INSTRUMENT ABS NEUTROPHIL CT 4.2 K/uL; LYMPHOCYTE COUNT 1.4 K/uL (1.0-2.8); MCH 26.9 PG (29.0-34.0); MCHC 31.8 G/DL (30.0-36.0); MCV 84.6 FL (86-99); MONOCYTE COUNT 0.3 K/uL (0-0.8); NEUTROPHIL (%) 68.8 % (45-76); NEUTROPHIL COUNT 4.2 K/uL (1.8-6.4); RBC DIS.WIDTH-CV 15.1 % (11.8-14.6); RBC DIS.WIDTH-SD 46.3 % (39-53); RED BLOOD COUNT 5.25 M/uL (4.00-5.50); WHITE BLOOD COUNT 6.1 K/uL (4.1-10.2)
[2017-03-16 19:51] LABS: CHLORIDE 109 mEq/L (99-109); POTASSIUM 3.4 mEq/L (3.7-5.4); SODIUM 145 mEq/L (136-147)
[2017-03-16 19:52] LABS: MAGNESIUM 1.9 mg/dL (1.3-2.7)
[2017-03-16 19:53] LABS: INTER. NORMALIZED RATIO 0.9; PTT 23.5 (25-32)
[2017-03-16 19:54] LABS: GLUCOSE 73 mg/dL (70-99)
[2017-03-16 19:55] LABS: ANION GAP 11 MEQ/L (2-14); PROTHROMBIN TIME 9.2 (9.2-11.2)
[2017-03-16 19:57] LABS: GFR ESTIMATE (CALCULATED) > 59 mL/min/; SERUM ETHYL ALCOHOL 337 mg/dL
[2017-03-16 19:58] LABS: UREA NITROGEN (BUN) 10 mg/dL (9-23)
[2017-03-16 20:08] LABS: TROP-I INTERPRETATION NEGATIVE; TROPONIN-I < 0.01 ng/mL (0.0-0.30)
[2017-03-16 20:29] LABS: HEMATOLOGY COMMENT 1 SN; MEAN PLAT.VOLUME 9.5 uM^3 (9.0-12.4); PLAT.SUFFICIENCY ADEQUATE; PLATELET COUNT 143 K/uL (156-360)
[2017-03-16 23:26] LABS: D-DIMER ELISA 1.72 mg/L FEU (< 0.57)
[2017-03-17 00:04] VITALS: BP 139/77
[2017-03-17 01:33] LABS: PROTHROMBIN TIME 10.1 (9.2-11.2); PTT 24.5 (25-32)
[2017-03-17 03:37] VITALS: BP 160/92
[2017-03-17 07:00] LABS: HEMATOCRIT 37.4 % (38.0-50.0); MCH 27.1 PG (29.0-34.0); MCHC 32.1 G/DL (30.0-36.0); MCV 84.6 FL (86-99); MEAN PLAT.VOLUME 9.9 uM^3 (9.0-12.4); PLATELET COUNT 117 K/uL (156-360); RBC DIS.WIDTH-CV 14.8 % (11.8-14.6); RBC DIS.WIDTH-SD 45.2 % (39-53); RED BLOOD COUNT 4.42 M/uL (4.00-5.50); WHITE BLOOD COUNT 4.4 K/uL (4.1-10.2)
[2017-03-17 07:10] LABS: ANION GAP 12 MEQ/L (2-14); CHLORIDE 105 MEQ/L (99-109); GFR ESTIMATE (CALCULATED) > 59 mL/min/; POTASSIUM 3.3 MEQ/L (3.7-5.4); SAMPLE HEMOLYSIS CHECK 0; SAMPLE ICTERIC CHECK 0; SAMPLE LIPEMIA CHECK 0; SODIUM 140 MEQ/L (136-147); UREA NITROGEN (BUN) 10 mg/dL (9-23)
[2017-03-17 07:14] LABS: GLUCOSE 94 mg/dL (70-99)
[2017-03-17 07:20] LABS: TROP-I INTERPRETATION NEGATIVE; TROPONIN-I < 0.01 ng/mL (0.0-0.30)
[2017-03-17 07:29] VITALS: BP 155/94
[2017-03-17] MEDS ORDERED: ZITHROMAX TRI-500 MG PO (09:44)
[2017-03-17] MEDS ORDERED: PREDNISONE10 MG PO (09:44)
[2017-03-17] MEDS ORDERED: CLOPIDOGREL75 MG PO (11:29)
[2017-03-17] MEDS ORDERED: CARVEDILOL6.25 MG PO (11:29)
[2017-03-17] MEDS ORDERED: AMLODIPINE BESY10 MG PO (11:30)
[2017-03-17] MEDS ORDERED: ATORVASTATIN CA40 MG PO (11:30)
[2017-03-17] MEDS ORDERED: VENTOLIN HFA18 GM IH (12:06)
[2017-03-17 13:10] LABS: TROP-I INTERPRETATION NEGATIVE; TROPONIN-I 0.01 ng/mL (0.0-0.30)
== END 2017-03-17 13:11 | disposition home or self-care (01) ==
LOC: EME 17:48 → EDOF 22:37 → 5WEST 22:37
PROVIDERS: Emergency Medicine; Hospitalist
DX: R07.89 Other chest pain (principal); J40 Bronchitis, not specified as acute or chronic; F10.129 Alcohol abuse with intoxication, unspecified; Y90.8 Blood alcohol level of 240 mg/100 ml or more; I25.2 Old myocardial infarction; J44.9 Chronic obstructive pulmonary disease, unspecified; R09.02 Hypoxemia; Z86.73 Personal history of transient ischemic attack (TIA), and cerebral infarction without residual deficits; Z79.82 Long term (current) use of aspirin; Z79.02 Long term (current) use of antithrombotics/antiplatelets; F17.200 Nicotine dependence, unspecified, uncomplicated
CPT/HCPCS: 71010; 71275; 80048; 83605; 83735; 84484; 85025; 85027; 85379; 85610; 85730; 87040; 93005; 94640; 94640 76; 94799; 99202; 99281; 99285; G0378; G0480; J1644; J3411; J3475; J7030; J7120

== ENCOUNTER 2017-03-21 02:38 | Emergency (ER) | payer OTHER ==
[~2017-03-21] VITALS: Ht 170.2 cm; Wt 69.7 kg
[~2017-03-21 02:38] MED LIST changes: +CLOPIDOGREL75 MG PO; +ZITHROMAX TRI-500 MG PO
[2017-03-21 04:41] LABS: CHLORIDE 102 mEq/L (99-109); SODIUM 141 mEq/L (136-147)
[2017-03-21 04:44] LABS: GLUCOSE 75 mg/dL (70-99)
[2017-03-21 04:45] LABS: ANION GAP 8 MEQ/L (2-14); TOTAL BILIRUBIN 0.3 mg/dL (0.0-1.0)
[2017-03-21 04:47] LABS: ALKALINE PHOSPHATASE 89 IU/L (3-129); GFR ESTIMATE (CALCULATED) > 59 mL/min/; SERUM ETHYL ALCOHOL 321 mg/dL
[2017-03-21 04:48] LABS: UREA NITROGEN (BUN) 8 mg/dL (9-23)
[2017-03-21 04:50] LABS: TROP-I INTERPRETATION NEGATIVE; TROPONIN-I < 0.01 ng/mL (0.0-0.30)
[2017-03-21 04:51] LABS: LIPASE 50 U/L (1.0-51.0)
[2017-03-21 05:18] LABS: HEMATOCRIT 42.6 % (38.0-50.0); MCH 26.9 PG (29.0-34.0); MCHC 31.5 G/DL (30.0-36.0); MCV 85.4 FL (86-99); MEAN PLAT.VOLUME 9.4 uM^3 (9.0-12.4); PLATELET COUNT 160 K/uL (156-360); RBC DIS.WIDTH-CV 15.7 % (11.8-14.6); RBC DIS.WIDTH-SD 47.7 % (39-53); RED BLOOD COUNT 4.99 M/uL (4.00-5.50); WHITE BLOOD COUNT 4.5 K/uL (4.1-10.2)
[2017-03-21 06:09] LABS: TROP-I INTERPRETATION NEGATIVE; TROPONIN-I < 0.01 ng/mL (0.0-0.30)
[2017-03-21] MEDS ORDERED: PEPCID20 MG PO (06:22)
[2017-03-21 06:30] VITALS: BP 129/89
[2017-03-22] MEDS ORDERED: OPANA ER20 MG PO (14:31)
[2017-03-22] MEDS ORDERED: OXYCODONE HCL30 MG PO (14:32)
== END 2017-03-21 06:33 | disposition home or self-care (01) ==
LOC: EME → EDBD 02:38 → EME 06:33
PROVIDERS: Emergency Medicine
DX: R07.89 Other chest pain (principal); F10.129 Alcohol abuse with intoxication, unspecified; R79.89 Other specified abnormal findings of blood chemistry; R06.02 Shortness of breath; R10.816 Epigastric abdominal tenderness; G89.29 Other chronic pain; M54.9 Dorsalgia, unspecified; Z79.891 Long term (current) use of opiate analgesic; I10 Essential (primary) hypertension; Z86.718 Personal history of other venous thrombosis and embolism; Y90.8 Blood alcohol level of 240 mg/100 ml or more; F17.200 Nicotine dependence, unspecified, uncomplicated
CPT/HCPCS: 71020; 80053; 83690; 84484; 85027; 93005; 99281; 99284; G0480

== ENCOUNTER 2017-03-21 17:18 | Inpatient (IN) | payer OTHER ==
[~2017-03-21] VITALS: Ht 170.2 cm; Wt 70.6 kg
[~2017-03-21 17:18] MED LIST changes: +PEPCID20 MG PO
[2017-03-21 18:57] LABS: EOSINOPHIL (%) 2.6 % (0-5); EOSINOPHIL COUNT 0.2 K/uL (0-0.3); HEMATOCRIT 42.7 % (38.0-50.0); IMMATURE GRANULOCYTE (%) 0.2 % (0.0-0.7); INSTRUMENT ABS NEUTROPHIL CT 4.1 K/uL; LYMPHOCYTE COUNT 1.1 K/uL (1.0-2.8); MCHC 31.4 G/DL (30.0-36.0); MCV 85.9 FL (86-99); MONOCYTE (%) 6.9 % (3-12); MONOCYTE COUNT 0.4 K/uL (0-0.8); NEUTROPHIL (%) 70.5 % (45-76); NEUTROPHIL COUNT 4.1 K/uL (1.8-6.4); PLATELET COUNT 168 K/uL (156-360); RBC DIS.WIDTH-CV 15.9 % (11.8-14.6); RBC DIS.WIDTH-SD 48.7 % (39-53); RED BLOOD COUNT 4.97 M/uL (4.00-5.50); WHITE BLOOD COUNT 5.8 K/uL (4.1-10.2)
[2017-03-21 19:05] LABS: CHLORIDE 107 mEq/L (99-109); POTASSIUM 4.1 mEq/L (3.7-5.4); SODIUM 146 mEq/L (136-147)
[2017-03-21 19:08] LABS: ANION GAP 11 MEQ/L (2-14); GLUCOSE 96 mg/dL (70-99); INTER. NORMALIZED RATIO 0.9; PTT 24.8 (25-32)
[2017-03-21 19:11] LABS: GFR ESTIMATE (CALCULATED) > 59 mL/min/
[2017-03-21 19:12] LABS: UREA NITROGEN (BUN) 15 mg/dL (9-23)
[2017-03-21 19:17] LABS: TROP-I INTERPRETATION NEGATIVE; TROPONIN-I < 0.01 ng/mL (0.0-0.30)
[2017-03-22 00:58] LABS: MAGNESIUM 1.7 mg/dL (1.3-2.7)
[2017-03-22 01:01] LABS: TOTAL BILIRUBIN 0.3 mg/dL (0.0-1.0)
[2017-03-22 01:02] LABS: ALKALINE PHOSPHATASE 88 IU/L (3-129)
[2017-03-22 01:03] LABS: ADD MIUA? NO; BILIRUBIN NEGATIVE; BLOOD NEGATIVE; COLOR YELLOW ((YELLOW)); GLUCOSE (STRIP) NEGATIVE; KETONES NEGATIVE; LEUKOCYTES NEGATIVE; NITRITE NEGATIVE; PROTEIN (STRIP) 30; SPECIFIC GRAVITY 1.017 (1.000-1.030); UCUL ADDED? NO; UROBILINOGEN 0.2 MG/DL (0.2-1.0)
[2017-03-22 01:05] LABS: DIRECT BILIRUBIN 0.1 mg/dL (0.0-0.3)
[2017-03-22 01:06] LABS: LIPASE 109 U/L (1.0-51.0)
[2017-03-22 02:17] VITALS: BP 166/107
[2017-03-22 02:17] LABS: TROP-I INTERPRETATION NEGATIVE; TROPONIN-I < 0.01 ng/mL (0.0-0.30)
[2017-03-22 07:27] LABS: EOSINOPHIL (%) 1.7 % (0-5); EOSINOPHIL COUNT 0.1 K/uL (0-0.3); HEMATOCRIT 33.5 % (38.0-50.0); IMMATURE GRANULOCYTE (%) 0.2 % (0.0-0.7); LYMPHOCYTE COUNT 1.3 K/uL (1.0-2.8); MCH 28.2 PG (29.0-34.0); MCHC 33.1 G/DL (30.0-36.0); MCV 85.2 FL (86-99); MEAN PLAT.VOLUME 9.7 uM^3 (9.0-12.4); MONOCYTE (%) 6.4 % (3-12); MONOCYTE COUNT 0.3 K/uL (0-0.8); NEUTROPHIL (%) 63.6 % (45-76); PLATELET COUNT 141 K/uL (156-360); RBC DIS.WIDTH-CV 15.8 % (11.8-14.6); RBC DIS.WIDTH-SD 48.6 % (39-53); RED BLOOD COUNT 3.93 M/uL (4.00-5.50); WHITE BLOOD COUNT 4.7 K/uL (4.1-10.2)
[2017-03-22 07:37] VITALS: BP 184/90
[2017-03-22 07:37] LABS: ANION GAP 8 MEQ/L (2-14); CHLORIDE 106 MEQ/L (99-109); GFR ESTIMATE (CALCULATED) > 59 mL/min/; GLUCOSE 71 mg/dL (70-99); POTASSIUM 3.6 MEQ/L (3.7-5.4); SAMPLE HEMOLYSIS CHECK 0; SAMPLE ICTERIC CHECK 0; SAMPLE LIPEMIA CHECK 0; SODIUM 141 MEQ/L (136-147); UREA NITROGEN (BUN) 11 mg/dL (9-23)
[2017-03-22 07:43] LABS: TROP-I INTERPRETATION NEGATIVE; TROPONIN-I 0.01 ng/mL (0.0-0.30)
[2017-03-22 08:34] LABS: INTERNAL CONTROL VALID? YES
[2017-03-22 11:33] VITALS: BP 178/99
[2017-03-22] MEDS ORDERED: OPANA ER20 MG PO (14:31)
[2017-03-22] MEDS ORDERED: OXYCODONE HCL30 MG PO (14:32)
[2017-03-22 15:10] VITALS: BP 166/99
[2017-03-22 19:45] VITALS: BP 157/101
[2017-03-23 00:41] VITALS: BP 138/98
[2017-03-23 07:46] VITALS: BP 155/90
[2017-03-23 08:35] LABS: EOSINOPHIL (%) 0 % (0-5); HEMATOCRIT 44.5 % (38.0-50.0); IMMATURE GRANULOCYTE (%) 0.3 % (0.0-0.7); INSTRUMENT ABS NEUTROPHIL CT 3.2 K/uL; LYMPHOCYTE COUNT 0.4 K/uL (1.0-2.8); MCH 27.9 PG (29.0-34.0); MCHC 33.3 G/DL (30.0-36.0); MCV 83.8 FL (86-99); MEAN PLAT.VOLUME 10.1 uM^3 (9.0-12.4); MONOCYTE (%) 5.5 % (3-12); MONOCYTE COUNT 0.2 K/uL (0-0.8); NEUTROPHIL (%) 83.2 % (45-76); NEUTROPHIL COUNT 3.2 K/uL (1.8-6.4); RBC DIS.WIDTH-CV 15.5 % (11.8-14.6); RBC DIS.WIDTH-SD 46.3 % (39-53); WHITE BLOOD COUNT 3.8 K/uL (4.1-10.2)
[2017-03-23 08:36] LABS: PLATELET COUNT 193 K/uL (156-360); RED BLOOD COUNT 5.31 M/uL (4.00-5.50)
[2017-03-23 09:00] LABS: ANION GAP 13 MEQ/L (2-14); CHLORIDE 99 MEQ/L (99-109); GFR ESTIMATE (CALCULATED) > 59 mL/min/; SAMPLE HEMOLYSIS CHECK 0; SAMPLE ICTERIC CHECK 0; SAMPLE LIPEMIA CHECK 0; SODIUM 137 MEQ/L (136-147); UREA NITROGEN (BUN) 11 mg/dL (9-23)
[2017-03-23 09:06] LABS: GLUCOSE 186 mg/dL (70-99)
[2017-03-23 15:05] VITALS: BP 164/83
[2017-03-23 23:24] VITALS: BP 135/94
== END 2017-03-24 08:24 | disposition left against medical advice (07) | DRG 189 ==
LOC: EME 17:18 → 5SOUTH 03-22 00:14 → EDOF 03-22 00:14 → 5SOUTH 03-22 01:43
PROVIDERS: Emergency Medicine; Hospitalist; Internal Medicine
DX: J96.01 Acute respiratory failure with hypoxia (principal); J44.1 Chronic obstructive pulmonary disease with (acute) exacerbation; Z86.73 Personal history of transient ischemic attack (TIA), and cerebral infarction without residual deficits; F10.229 Alcohol dependence with intoxication, unspecified; F10.220 Alcohol dependence with intoxication, uncomplicated; Y90.8 Blood alcohol level of 240 mg/100 ml or more; I10 Essential (primary) hypertension; F17.200 Nicotine dependence, unspecified, uncomplicated; R07.89 Other chest pain; I48.0 Paroxysmal atrial fibrillation; E87.6 Hypokalemia; D69.6 Thrombocytopenia, unspecified; D64.9 Anemia, unspecified; E87.2 Acidosis; K21.9 Gastro-esophageal reflux disease without esophagitis; J98.11 Atelectasis; J44.0 Chronic obstructive pulmonary disease with (acute) lower respiratory infection; J20.9 Acute bronchitis, unspecified; Z99.81 Dependence on supplemental oxygen; K29.20 Alcoholic gastritis without bleeding; Z91.14 Patient's other noncompliance with medication regimen; Z86.718 Personal history of other venous thrombosis and embolism; K76.0 Fatty (change of) liver, not elsewhere classified
CPT/HCPCS: 71020; 71275; 74177; 80048; 80076; 81003; 83605; 83690; 83735; 84484; 85025; 85610; 85730; 87040; 87070; 87205; 87449; 93005; 94640; 94640 76; 94799; 99202; 99281; 99285; J0360; J0456; J0696; J1644; J2930; J7030; J7050; J7512

== ENCOUNTER 2017-03-29 05:11 | Observation (INO) | payer OTHER ==
[~2017-03-29] VITALS: Ht 170.2 cm; Wt 62.1 kg
[~2017-03-29 05:11] MED LIST changes: +OPANA ER20 MG PO
[2017-03-29 05:40] LABS: HEMATOCRIT 36.4 % (38.0-50.0); MCH 27.5 PG (29.0-34.0); MCHC 32.1 G/DL (30.0-36.0); MCV 85.4 FL (86-99); MEAN PLAT.VOLUME 8.2 uM^3 (9.0-12.4); PLATELET COUNT 330 K/uL (156-360); RBC DIS.WIDTH-CV 16.6 % (11.8-14.6); RBC DIS.WIDTH-SD 50.9 % (39-53); RED BLOOD COUNT 4.26 M/uL (4.00-5.50); WHITE BLOOD COUNT 5.9 K/uL (4.1-10.2)
[2017-03-29 05:57] LABS: TROP-I INTERPRETATION NEGATIVE; TROPONIN-I < 0.01 ng/mL (0.0-0.30)
[2017-03-29 06:06] LABS: CHLORIDE 110 mEq/L (99-109); POTASSIUM 3.2 mEq/L (3.7-5.4)
[2017-03-29 06:07] LABS: GLUCOSE 93 mg/dL (70-99)
[2017-03-29 06:08] LABS: SODIUM 145 mEq/L (136-147)
[2017-03-29 06:09] LABS: ANION GAP 14 MEQ/L (2-14)
[2017-03-29 06:11] LABS: GFR ESTIMATE (CALCULATED) > 59 mL/min/
[2017-03-29 06:14] LABS: TOTAL BILIRUBIN 0.2 mg/dL (0.0-1.0)
[2017-03-29 06:15] LABS: ALKALINE PHOSPHATASE 88 IU/L (3-129)
[2017-03-29 06:17] LABS: UREA NITROGEN (BUN) 21 mg/dL (9-23)
[2017-03-29 06:18] LABS: DIRECT BILIRUBIN 0.1 mg/dL (0.0-0.3)
[2017-03-29 06:19] LABS: LIPASE 67 U/L (1.0-51.0)
[2017-03-29 09:41] LABS: MAGNESIUM 1.9 mg/dL (1.3-2.7)
[2017-03-29 10:19] LABS: INTER. NORMALIZED RATIO 0.9; PROTHROMBIN TIME 9.1 (9.2-11.2)
[2017-03-29 12:49] LABS: TROP-I INTERPRETATION NEGATIVE; TROPONIN-I < 0.01 ng/mL (0.0-0.30)
[2017-03-29 14:18] VITALS: BP 130/87
[2017-03-29 16:16] VITALS: BP 139/94
[2017-03-29 19:27] LABS: TROP-I INTERPRETATION NEGATIVE; TROPONIN-I < 0.01 ng/mL (0.0-0.30)
[2017-03-29 21:00] VITALS: BP 170/116
[2017-03-30 00:02] VITALS: BP 180/113
[2017-03-30 04:03] VITALS: BP 175/100
[2017-03-30 08:17] LABS: ANION GAP 9 MEQ/L (2-14); CHLORIDE 103 MEQ/L (99-109); GFR ESTIMATE (CALCULATED) > 59 mL/min/; GLUCOSE 95 mg/dL (70-99); SAMPLE HEMOLYSIS CHECK 0; SAMPLE ICTERIC CHECK 0; SAMPLE LIPEMIA CHECK 0; SODIUM 139 MEQ/L (136-147); UREA NITROGEN (BUN) 12 mg/dL (9-23)
[2017-03-30 08:25] LABS: POTASSIUM 4.8 MEQ/L (3.7-5.4)
[2017-03-30 09:15] VITALS: BP 175/112
[2017-03-30 10:56] VITALS: BP 155/102
[2017-03-30] MEDS ORDERED: AZITHROMYCIN500 M1 PO (11:30)
[2017-03-30] MEDS ORDERED: PREDNISONE10 MG PO (11:32)
== END 2017-03-30 13:37 | disposition home or self-care (01) ==
LOC: EME → EDBD 05:11 → EME 05:11 → EDOF 09:04 → 5WEST 09:04 → EDOF 09:04 → 5WEST 13:46
PROVIDERS: Internal Medicine
DX: J44.1 Chronic obstructive pulmonary disease with (acute) exacerbation (principal); R09.02 Hypoxemia; R07.9 Chest pain, unspecified; F10.20 Alcohol dependence, uncomplicated; F17.200 Nicotine dependence, unspecified, uncomplicated; R74.0 Nonspecific elevation of levels of transaminase and lactic acid dehydrogenase [LDH]; E87.6 Hypokalemia; I10 Essential (primary) hypertension; Z86.73 Personal history of transient ischemic attack (TIA), and cerebral infarction without residual deficits; Z86.718 Personal history of other venous thrombosis and embolism; Z82.49 Family history of ischemic heart disease and other diseases of the circulatory system; G89.29 Other chronic pain; M54.9 Dorsalgia, unspecified; Z79.891 Long term (current) use of opiate analgesic
CPT/HCPCS: 71010; 80048; 80076; 83690; 83735; 84484; 85027; 85610; 93005; 94640; 94640 76; 94799; 99202; 99281; 99285; G0378; J0360; J1650; J2270; J2920; J2930; J3480

== ENCOUNTER 2017-04-03 03:08 | Inpatient (IN) | payer OTHER ==
[~2017-04-03] VITALS: Ht 170.2 cm; Wt 66.3 kg
[~2017-04-03 03:08] MED LIST changes: +AZITHROMYCIN500 M1 PO
[2017-04-03 03:54] LABS: HEMATOCRIT 38.7 % (38.0-50.0); MCH 27.9 PG (29.0-34.0); MEAN PLAT.VOLUME 8.5 uM^3 (9.0-12.4); PLATELET COUNT 403 K/uL (156-360); RBC DIS.WIDTH-CV 17.6 % (11.8-14.6); RBC DIS.WIDTH-SD 54.7 % (39-53); RED BLOOD COUNT 4.45 M/uL (4.00-5.50); WHITE BLOOD COUNT 10.3 K/uL (4.1-10.2)
[2017-04-03 04:03] LABS: CHLORIDE 106 mEq/L (99-109)
[2017-04-03 04:04] LABS: INTER. NORMALIZED RATIO 0.9; PROTHROMBIN TIME 9.5 (9.2-11.2); PTT 23.5 (25-32)
[2017-04-03 04:05] LABS: GLUCOSE 84 mg/dL (70-99)
[2017-04-03 04:06] LABS: ANION GAP 14 MEQ/L (2-14)
[2017-04-03 04:08] LABS: SERUM ETHYL ALCOHOL 229 mg/dL
[2017-04-03 04:09] LABS: GFR ESTIMATE (CALCULATED) > 59 mL/min/
[2017-04-03 04:10] LABS: UREA NITROGEN (BUN) 13 mg/dL (9-23)
[2017-04-03 04:12] LABS: LIPASE 42 U/L (1.0-51.0)
[2017-04-03 04:15] LABS: POTASSIUM 3.5 mEq/L (3.7-5.4); SODIUM 146 mEq/L (136-147); TROP-I INTERPRETATION NEGATIVE; TROPONIN-I < 0.01 ng/mL (0.0-0.30)
[2017-04-03 09:07] LABS: MAGNESIUM 2.1 mg/dL (1.3-2.7)
[2017-04-03 09:11] LABS: TOTAL BILIRUBIN 0.2 mg/dL (0.0-1.0)
[2017-04-03 09:12] LABS: ALKALINE PHOSPHATASE 79 IU/L (3-129)
[2017-04-03 09:14] LABS: DIRECT BILIRUBIN 0.1 mg/dL (0.0-0.3)
[2017-04-03 10:15] VITALS: BP 146/87
[2017-04-03 15:05] LABS: TROP-I INTERPRETATION NEGATIVE; TROPONIN-I < 0.01 ng/mL (0.0-0.30)
[2017-04-03 17:00] VITALS: BP 163/96
[2017-04-03 19:54] VITALS: BP 142/89
[2017-04-03 23:52] VITALS: BP 153/95
[2017-04-04 03:47] VITALS: BP 184/88
[2017-04-04 06:42] LABS: HEMATOCRIT 37.4 % (38.0-50.0); MCH 28.5 PG (29.0-34.0); MCHC 32.6 G/DL (30.0-36.0); MCV 87.4 FL (86-99); PLATELET COUNT 398 K/uL (156-360); RBC DIS.WIDTH-CV 17.5 % (11.8-14.6); RBC DIS.WIDTH-SD 54.9 % (39-53); RED BLOOD COUNT 4.28 M/uL (4.00-5.50); WHITE BLOOD COUNT 10.6 K/uL (4.1-10.2)
[2017-04-04 07:17] LABS: ALKALINE PHOSPHATASE 74 IU/L (3-129); ANION GAP 9 MEQ/L (2-14); CHLORIDE 101 MEQ/L (99-109); GFR ESTIMATE (CALCULATED) > 59 mL/min/; GLUCOSE 163 mg/dL (70-99); POTASSIUM 4.5 MEQ/L (3.7-5.4); SAMPLE HEMOLYSIS CHECK 0; SAMPLE ICTERIC CHECK 0; SAMPLE LIPEMIA CHECK 0; SODIUM 136 MEQ/L (136-147); TOTAL BILIRUBIN 0.4 MG/DL (0.0-1.0); UREA NITROGEN (BUN) 13 mg/dL (9-23)
[2017-04-04 07:25] VITALS: BP 178/105
[2017-04-04 18:29] VITALS: BP 169/99
[2017-04-04 23:28] VITALS: BP 165/97
[2017-04-05 06:40] LABS: MCH 28.7 PG (29.0-34.0); MCHC 31.8 G/DL (30.0-36.0); MCV 90.5 FL (86-99); PLATELET COUNT 383 K/uL (156-360); RBC DIS.WIDTH-CV 17.6 % (11.8-14.6); RBC DIS.WIDTH-SD 57.1 % (39-53); RED BLOOD COUNT 4.42 M/uL (4.00-5.50)
[2017-04-05 07:10] LABS: ALKALINE PHOSPHATASE 65 IU/L (3-129); ANION GAP 9 MEQ/L (2-14); CHLORIDE 102 MEQ/L (99-109); GFR ESTIMATE (CALCULATED) > 59 mL/min/; GLUCOSE 141 mg/dL (70-99); POTASSIUM 4.3 MEQ/L (3.7-5.4); SAMPLE HEMOLYSIS CHECK 0; SAMPLE ICTERIC CHECK 0; SAMPLE LIPEMIA CHECK 0; SODIUM 140 MEQ/L (136-147); UREA NITROGEN (BUN) 15 mg/dL (9-23)
[2017-04-05 07:12] LABS: TOTAL BILIRUBIN 0.3 MG/DL (0.0-1.0)
[2017-04-05 07:30] VITALS: BP 139/95
[2017-04-05 15:57] VITALS: BP 134/80
[2017-04-05 19:48] VITALS: BP 132/86
[2017-04-05 23:21] VITALS: BP 103/61
[2017-04-06 07:05] VITALS: BP 120/80
[2017-04-06 07:18] LABS: HEMATOCRIT 35.1 % (38.0-50.0); MCH 27.5 PG (29.0-34.0); MCHC 30.2 G/DL (30.0-36.0); MCV 91.2 FL (86-99); MEAN PLAT.VOLUME 9.1 uM^3 (9.0-12.4); PLATELET COUNT 334 K/uL (156-360); RBC DIS.WIDTH-CV 17.8 % (11.8-14.6); RBC DIS.WIDTH-SD 58.8 % (39-53); RED BLOOD COUNT 3.85 M/uL (4.00-5.50); WHITE BLOOD COUNT 10.5 K/uL (4.1-10.2)
[2017-04-06 07:33] LABS: ALKALINE PHOSPHATASE 49 IU/L (3-129); ANION GAP 6 MEQ/L (2-14); CHLORIDE 106 MEQ/L (99-109); GFR ESTIMATE (CALCULATED) > 59 mL/min/; SAMPLE HEMOLYSIS CHECK 0; SAMPLE ICTERIC CHECK 0; SAMPLE LIPEMIA CHECK 0; SODIUM 142 MEQ/L (136-147); UREA NITROGEN (BUN) 21 mg/dL (9-23)
[2017-04-06 07:37] LABS: GLUCOSE 84 mg/dL (70-99); TOTAL BILIRUBIN 0.2 MG/DL (0.0-1.0)
[2017-04-06 15:45] VITALS: BP 113/70
[2017-04-07 00:07] VITALS: BP 152/95
[2017-04-07 06:59] VITALS: BP 132/89
[2017-04-07 07:04] LABS: HEMATOCRIT 38.7 % (38.0-50.0); MCHC 30.7 G/DL (30.0-36.0); MCV 91.1 FL (86-99); MEAN PLAT.VOLUME 8.7 uM^3 (9.0-12.4); PLATELET COUNT 327 K/uL (156-360); RBC DIS.WIDTH-CV 17.9 % (11.8-14.6); RBC DIS.WIDTH-SD 58.1 % (39-53); RED BLOOD COUNT 4.25 M/uL (4.00-5.50); WHITE BLOOD COUNT 11.8 K/uL (4.1-10.2)
[2017-04-07 07:32] LABS: ALKALINE PHOSPHATASE 55 IU/L (3-129); ANION GAP 7 MEQ/L (2-14); CHLORIDE 105 MEQ/L (99-109); GFR ESTIMATE (CALCULATED) > 59 mL/min/; GLUCOSE 84 mg/dL (70-99); POTASSIUM 3.9 MEQ/L (3.7-5.4); SAMPLE HEMOLYSIS CHECK 0; SAMPLE ICTERIC CHECK 0; SAMPLE LIPEMIA CHECK 0; SODIUM 144 MEQ/L (136-147); UREA NITROGEN (BUN) 14 mg/dL (9-23)
[2017-04-07 07:33] LABS: TOTAL BILIRUBIN 0.4 MG/DL (0.0-1.0)
[2017-04-07 16:01] VITALS: BP 125/81
[2017-04-08 00:38] VITALS: BP 148/92
[2017-04-08] MEDS ORDERED: DUONEB 2.5-0.5 M3 ML AEROSOL (06:22)
[2017-04-08] MEDS ORDERED: LEVOFLOXACIN750 MG PO (06:22)
[2017-04-08] MEDS ORDERED: NICOTINE PATCH1 EAC2 TD (06:22)
[2017-04-08] MEDS ORDERED: PREDNISONE20 MG PO (06:23)
[2017-04-08] MEDS ORDERED: LOSARTAN POTAS100 MG PO (06:23)
[2017-04-08] MEDS ORDERED: CARVEDILOL12.5 MG PO (06:23)
[2017-04-08 06:33] LABS: MCH 28.1 PG (29.0-34.0); MCV 90.5 FL (86-99); MEAN PLAT.VOLUME 8.9 uM^3 (9.0-12.4); PLATELET COUNT 307 K/uL (156-360); RBC DIS.WIDTH-CV 18.5 % (11.8-14.6); RBC DIS.WIDTH-SD 60.1 % (39-53); RED BLOOD COUNT 4.42 M/uL (4.00-5.50); WHITE BLOOD COUNT 11.7 K/uL (4.1-10.2)
[2017-04-08 07:04] LABS: ALKALINE PHOSPHATASE 56 IU/L (3-129); ANION GAP 8 MEQ/L (2-14); CHLORIDE 104 MEQ/L (99-109); GFR ESTIMATE (CALCULATED) > 59 mL/min/; GLUCOSE 77 mg/dL (70-99); SAMPLE HEMOLYSIS CHECK 2; SAMPLE ICTERIC CHECK 0; SAMPLE LIPEMIA CHECK 0; SODIUM 142 MEQ/L (136-147); UREA NITROGEN (BUN) 12 mg/dL (9-23)
[2017-04-08 07:08] LABS: TOTAL BILIRUBIN 0.5 MG/DL (0.0-1.0)
[2017-04-08 07:09] LABS: POTASSIUM ND MEQ/L (3.7-5.4)
[2017-04-08 08:57] VITALS: BP 148/91
[2017-04-08 09:28] LABS: NO-CHARGE AST (GOT) 17 IU/L (15-37)
== END 2017-04-08 15:25 | DRG 190 ==
LOC: EME → EDBD 03:08 → EDOF 07:23 → 5EAST 07:23 → EDOF 07:42 → 5EAST 09:54
PROVIDERS: Emergency Medicine; Internal Medicine
DX: J44.1 Chronic obstructive pulmonary disease with (acute) exacerbation (principal); J96.01 Acute respiratory failure with hypoxia; K70.10 Alcoholic hepatitis without ascites; E87.6 Hypokalemia; F10.229 Alcohol dependence with intoxication, unspecified; F17.200 Nicotine dependence, unspecified, uncomplicated; G89.29 Other chronic pain; I10 Essential (primary) hypertension; Z79.899 Other long term (current) drug therapy; Z82.49 Family history of ischemic heart disease and other diseases of the circulatory system; Z86.718 Personal history of other venous thrombosis and embolism; Z86.73 Personal history of transient ischemic attack (TIA), and cerebral infarction without residual deficits; M54.9 Dorsalgia, unspecified
CPT/HCPCS: 71020; 80048; 80053; 80076; 83690; 83735; 84484; 84999; 85027; 85610; 85730; 93005; 94640; 94640 76; 94760; 94799; 97530 GO; 99202; 99281; 99285; G0480; J1650; J2920; J7512; J7644

== ENCOUNTER 2017-06-27 17:43 | Emergency (ER) | payer OTHER ==
[~2017-06-27] VITALS: Ht 172.7 cm; Wt 59.3 kg
[~2017-06-27 17:43] MED LIST changes: +CARVEDILOL12.5 MG PO; +LEVOFLOXACIN750 MG PO; +LOSARTAN POTAS100 MG PO; +PREDNISONE20 MG PO
[2017-06-27 19:08] LABS: HEMATOCRIT 45.5 % (38.0-50.0); MCH 30.1 PG (29.0-34.0); MCHC 32.5 G/DL (30.0-36.0); MCV 92.7 FL (86-99); PLATELET COUNT 277 K/uL (156-360); RBC DIS.WIDTH-CV 14.5 % (11.8-14.6); RBC DIS.WIDTH-SD 49.4 % (39-53); RED BLOOD COUNT 4.91 M/uL (4.00-5.50); WHITE BLOOD COUNT 7.4 K/uL (4.1-10.2)
[2017-06-27 19:17] LABS: CHLORIDE 109 mEq/L (99-109); POTASSIUM 3.6 mEq/L (3.7-5.4); SODIUM 144 mEq/L (136-147)
[2017-06-27 19:18] LABS: GLUCOSE 83 mg/dL (70-99)
[2017-06-27 19:20] LABS: ANION GAP 12 MEQ/L (2-14)
[2017-06-27 19:22] LABS: GFR ESTIMATE (CALCULATED) > 59 mL/min/; SERUM ETHYL ALCOHOL 245 mg/dL
[2017-06-27 19:23] LABS: UREA NITROGEN (BUN) 10 mg/dL (9-23)
[2017-06-27 20:23] VITALS: BP 131/91
== END 2017-06-27 20:27 | disposition home or self-care (01) ==
LOC: EME 17:43
PROVIDERS: Emergency Medicine
DX: F10.129 Alcohol abuse with intoxication, unspecified (principal); R51 Headache; I10 Essential (primary) hypertension; J44.9 Chronic obstructive pulmonary disease, unspecified; Z86.73 Personal history of transient ischemic attack (TIA), and cerebral infarction without residual deficits; Z86.718 Personal history of other venous thrombosis and embolism; Z79.02 Long term (current) use of antithrombotics/antiplatelets; Y90.8 Blood alcohol level of 240 mg/100 ml or more; F17.200 Nicotine dependence, unspecified, uncomplicated
CPT/HCPCS: 70450; 80048; 85027; 99281; 99284; G0480; J7644

== ENCOUNTER 2017-07-10 11:50 | Inpatient (IN) | payer OTHER ==
[~2017-07-10] VITALS: Ht 170.2 cm; Wt 61.3 kg
[2017-07-10 12:34] LABS: EOSINOPHIL (%) 1.2 % (0-5); EOSINOPHIL COUNT 0.1 K/uL (0-0.3); HEMATOCRIT 45.9 % (38.0-50.0); IMMATURE GRANULOCYTE (%) 0.1 % (0.0-0.7); INSTRUMENT ABS NEUTROPHIL CT 4.9 K/uL; LYMPHOCYTE COUNT 1.5 K/uL (1.0-2.8); MCH 30.4 PG (29.0-34.0); MCHC 33.1 G/DL (30.0-36.0); MCV 91.8 FL (86-99); MEAN PLAT.VOLUME 9.4 uM^3 (9.0-12.4); MONOCYTE (%) 5.8 % (3-12); MONOCYTE COUNT 0.4 K/uL (0-0.8); NEUTROPHIL (%) 70.6 % (45-76); NEUTROPHIL COUNT 4.9 K/uL (1.8-6.4); PLATELET COUNT 200 K/uL (156-360); RBC DIS.WIDTH-CV 13.8 % (11.8-14.6); RBC DIS.WIDTH-SD 46.9 % (39-53)
[2017-07-10 12:40] LABS: INTER. NORMALIZED RATIO 0.9
[2017-07-10 12:47] LABS: PROTHROMBIN TIME 9.4 SEC (10.2-12.9)
[2017-07-10 12:53] LABS: CHLORIDE 102 mEq/L (99-109)
[2017-07-10 12:54] LABS: POTASSIUM 3.7 mEq/L (3.7-5.4); SODIUM 140 mEq/L (136-147)
[2017-07-10 12:56] LABS: GLUCOSE 100 mg/dL (70-99)
[2017-07-10 12:57] LABS: ANION GAP 13 MEQ/L (2-14); TROP-I INTERPRETATION NEGATIVE; TROPONIN-I < 0.01 ng/mL (0.0-0.30)
[2017-07-10 12:58] LABS: TOTAL BILIRUBIN 0.9 mg/dL (0.0-1.0)
[2017-07-10 12:59] LABS: ALKALINE PHOSPHATASE 78 IU/L (3-129); SERUM ETHYL ALCOHOL < 10 mg/dL
[2017-07-10 13:00] LABS: GFR ESTIMATE (CALCULATED) > 59 mL/min/
[2017-07-10 13:01] LABS: DIRECT BILIRUBIN 0.4 mg/dL (0.0-0.3); UREA NITROGEN (BUN) 12 mg/dL (9-23)
[2017-07-10 13:03] LABS: LIPASE 68 U/L (1.0-51.0)
[2017-07-10] MEDS ORDERED: FOLIC ACID1 MG PO (14:58)
[2017-07-10] MEDS ORDERED: PROAIR HFA8.5 GM IH (14:59)
[2017-07-10] MEDS ORDERED: CHILDREN'S ASPI81 M1 PO (15:00)
[2017-07-10] MEDS ORDERED: CARVEDILOL6.25 MG PO (15:06)
[2017-07-10 16:14] LABS: ADD MIUA? NO; BILIRUBIN NEGATIVE; BLOOD NEGATIVE; COLOR YELLOW ((YELLOW)); GLUCOSE (STRIP) NEGATIVE; KETONES 5; LEUKOCYTES NEGATIVE; NITRITE NEGATIVE; PROTEIN (STRIP) NEGATIVE; SPECIFIC GRAVITY 1.013 (1.000-1.030); UCUL ADDED? NO; UROBILINOGEN 0.2 MG/DL (0.2-1.0)
[2017-07-10 17:38] LABS: POINT-OF-CARE METER ID UU13113747
[2017-07-10 17:59] VITALS: BP 119/68; BP 170/118
[2017-07-10 19:31] VITALS: BP 170/106
[2017-07-10 23:55] VITALS: BP 166/114
[2017-07-11 03:28] VITALS: BP 174/96
[2017-07-11 06:20] LABS: HEMATOCRIT 42.9 % (38.0-50.0); MCHC 32.9 G/DL (30.0-36.0); MCV 91.3 FL (86-99); MEAN PLAT.VOLUME 9.7 uM^3 (9.0-12.4); PLATELET COUNT 168 K/uL (156-360); RBC DIS.WIDTH-CV 13.2 % (11.8-14.6); RBC DIS.WIDTH-SD 45.1 % (39-53); WHITE BLOOD COUNT 8.5 K/uL (4.1-10.2)
[2017-07-11 06:44] LABS: HDL CHOLESTEROL 85 MG/DL (Desirable>=40); LDL CHOLESTEROL 21 mg/dL (Desirable<100); MAGNESIUM 1.7 mg/dl (1.3-2.7); NON-HDL CHOLESTEROL 35 mg/dL (Desirable<160); TOTAL CHOLESTEROL 120 mg/dL (Desirable<200); TRIGLYCERIDES 69 MG/DL (Normal: <150)
[2017-07-11 06:58] LABS: Estimated Average Glucose 114 mg/dL (70-123); HEMOGLOBIN A1c (GLYCOHEMOGLOB) 5.6 % HGB (Below 5.7)
[2017-07-11 08:02] VITALS: BP 186/129
[2017-07-11 12:18] VITALS: BP 170/113
[2017-07-11 15:49] VITALS: BP 171/109
[2017-07-11 19:58] VITALS: BP 143/98
[2017-07-11 23:15] VITALS: BP 158/103
[2017-07-12 03:14] VITALS: BP 143/93
== END 2017-07-12 10:15 | disposition home or self-care (01) | DRG 65 ==
LOC: EME 11:50 → 5SOUTH 15:29 → EDOF 15:29 → ENRESERV 15:30 → 5SOUTH 17:41
PROVIDERS: Emergency Medicine; Internal Medicine
DX: I63.9 Cerebral infarction, unspecified (principal); I10 Essential (primary) hypertension; F10.239 Alcohol dependence with withdrawal, unspecified; J44.9 Chronic obstructive pulmonary disease, unspecified; R29.810 Facial weakness; R26.2 Difficulty in walking, not elsewhere classified; H53.8 Other visual disturbances; I69.351 Hemiplegia and hemiparesis following cerebral infarction affecting right dominant side; G89.29 Other chronic pain; M54.2 Cervicalgia; G43.909 Migraine, unspecified, not intractable, without status migrainosus; E78.5 Hyperlipidemia, unspecified; F41.9 Anxiety disorder, unspecified; F17.210 Nicotine dependence, cigarettes, uncomplicated; Z82.49 Family history of ischemic heart disease and other diseases of the circulatory system
CPT/HCPCS: 70450; 80048; 80061; 80076; 81003; 82948; 83036; 83605; 83690; 83735; 83880; 84484; 85025; 85027; 85610; 85730; 93005; 93306; 93880; 94640; 94640 76; 94760; 94799; 99202; 99281; 99285; G0480; J1650; J2060; J2270; J3475; J7030

== ENCOUNTER 2018-03-18 10:55 | Emergency (ER) | payer OTHER ==
[~2018-03-18] VITALS: Ht 180.3 cm; Wt 81.8 kg
[~2018-03-18 10:55] MED LIST changes: +CHILDREN'S ASPI81 M1 PO; +PROAIR HFA8.5 GM IH
[2018-03-18 11:56] LABS: BASOPHIL (%) 0.5 % (0-1); EOSINOPHIL (%) 1.1 % (0-5); EOSINOPHIL COUNT 0.1 K/uL (0-0.3); HEMATOCRIT 36.5 % (38.0-50.0); HEMOGLOBIN 12.6 G/DL (12.5-16.6); IMMATURE GRANULOCYTE (%) 0.5 % (0.0-0.7); LYMPHOCYTE (%) 16.8 % (15-42); LYMPHOCYTE COUNT 1.3 K/uL (1.0-2.8); MCH 34.9 PG (29.0-34.0); MCHC 34.5 G/DL (30.0-36.0); MCV 101.1 FL (86-99); MONOCYTE COUNT 0.6 K/uL (0-0.8); NEUTROPHIL (%) 74.1 % (45-76); NEUTROPHIL COUNT 5.9 K/uL (1.8-6.4); PLATELET COUNT 160 K/uL (156-360); RBC DIS.WIDTH-CV 15.2 % (11.8-14.6); RBC DIS.WIDTH-SD 56.9 % (39-53); RED BLOOD COUNT 3.61 M/uL (4.00-5.50)
[2018-03-18 12:38] LABS: CHLORIDE 94 MEQ/L (99-109); POTASSIUM 3.4 MEQ/L (3.7-5.4); SODIUM 138 MEQ/L (136-147)
[2018-03-18 12:45] LABS: CREATININE 0.9 MG/DL (0.6-1.3); GFR ESTIMATE (CALCULATED) > 59 mL/min/ (58.99-99999); GLUCOSE 92 mg/dL (70-99); SERUM ETHYL ALCOHOL 314 mg/dL; UREA NITROGEN (BUN) 11 mg/dL (9-23)
[2018-03-18 16:16] LABS: APPEARANCE CLEAR ((CLEAR)); BILIRUBIN NEGATIVE; BLOOD NEGATIVE; COLOR YELLOW ((YELLOW)); GLUCOSE (STRIP) NEGATIVE; KETONES NEGATIVE; LEUKOCYTES NEGATIVE; NITRITE NEGATIVE; PROTEIN (STRIP) NEGATIVE; SPECIFIC GRAVITY 1.014 (1.000-1.030)
[2018-03-18 16:25] LABS: AMPHETAMINE NEGATIVE (500 ng/mL); BARBITURATES NEGATIVE (200 ng/mL); BENZODIAZEPINES NEGATIVE (150 ng/mL); BUPRENORPHINE NEGATIVE (10 ng/mL); COCAINE NEGATIVE (150 ng/mL); METHADONE NEGATIVE (200 ng/mL); METHAMPHETAMINE NEGATIVE (500 ng/mL); OPIATES (MORPHINE) NEGATIVE (100 ng/mL); OXYCODONE PRESUMPTIVE POSITIVE (100 ng/mL); PHENCYCLIDINE NEGATIVE (25 ng/mL); PROPOXYPHENE NEGATIVE (300 ng/mL); THC CANNABINOIDS NEGATIVE (50 ng/mL); TRICYCLIC ANTIDEPRESSANTS NEGATIVE (300 ng/mL)
[2018-03-18 23:03] VITALS: BP 127/93
== END 2018-03-18 23:03 | disposition home or self-care (01) ==
LOC: EME 10:55
PROVIDERS: Emergency Medicine
DX: F32.9 Major depressive disorder, single episode, unspecified (principal); F10.129 Alcohol abuse with intoxication, unspecified; Y90.8 Blood alcohol level of 240 mg/100 ml or more; F41.9 Anxiety disorder, unspecified; I10 Essential (primary) hypertension; J45.909 Unspecified asthma, uncomplicated; G43.909 Migraine, unspecified, not intractable, without status migrainosus; I25.2 Old myocardial infarction; F17.200 Nicotine dependence, unspecified, uncomplicated; Z90.49 Acquired absence of other specified parts of digestive tract; Z86.718 Personal history of other venous thrombosis and embolism; Z79.82 Long term (current) use of aspirin; Z79.51 Long term (current) use of inhaled steroids
CPT/HCPCS: 80048; 81003; 85025; 90839; 93005; 99281; 99284; G0480